=== PATIENT | male | born 1960 | race Caucasian/White ===

== ENCOUNTER 2019-12-16 22:20 | Emergency (ER) | payer OTHER ==
[2019-12-16 22:35] VITALS: BP 144/93; PULSE 116
--- NOTE | 2019-12-16 22:41 | EDM.PDOC ---
ED HPI GENERAL MEDICAL PROBLEM - General Chief Complaint: Laceration Stated Complaint: LACERATION RIGHT PINKY FINGER Time Seen by Provider: 12/16/19 22:33 Source of Information: Reports: Patient History Limitations: Reports: No Limitations - History of Present Illness INITIAL COMMENTS - FREE TEXT/NARRATIVE: This patient is a 59 year old male that presents to the ER. Patient reports that he was at work when a machine smashed his right 5th finger causing a laceration. Patient denies any other injury. Onset: Today Onset Date: 12/16/19 Duration: Hour(s): (1) Location: Reports: Upper Extremity, Right Front/Back Body Image: 1 - laceration Severity: Mild Improves with: Reports: None Worsens with: Reports: None Associated Symptoms: Reports: No Other Symptoms Right pinky finger Pain Score (Numeric/FACES): 4 - Related Data Allergies Allergy/AdvReac Type Severity Reaction Status Date / Time No Known Allergies Allergy Verified 12/16/19 22:21 Home Meds: Home Meds cephALEXin [Keflex] 500 mg PO QID 5 Days #20 capsule 12/17/19 [Rx] Past Medical History - Past Surgical History HEENT Surgical History: Reports: Tonsillectomy Musculoskeletal Surgical History: Reports: Arthroscopic Knee, Ganglion Cyst, Other (See Below) Social & Family History - Tobacco Use Smoking Status *Q: Unknown Ever Smoked ED ROS GENERAL - Review of Systems Review Of Systems: See Below Constitutional: Reports: No Symptoms Respiratory: Reports: No Symptoms Cardiovascular: Reports: No Symptoms Musculoskeletal: Reports: No Symptoms Skin: Reports: Wound (laceraton right 5th finger) Neurological: Reports: No Symptoms Psychiatric: Reports: No Symptoms Hematologic/Lymphatic: Reports: No Symptoms Immunologic: Reports: No Symptoms ED EXAM, SKIN/RASH Exam: See Below Exam Limited By: No Limitations General Appearance: Alert, WD/WN, No Apparent Distress Head: Atraumatic Cardiovascular: Normal Peripheral Pulses, Regular Rate, Rhythm Peripheral Pulses: 2+: Radial (L), Radial (R) Extremities: Normal Range of Motion, Normal Capillary Refill, Other (Full ROM. No tendon injury seen. Sensory/motor function intact. Neurovascular intact. pulses +2, cap refill < 2 sec. ) Neurological: Alert, Oriented Psychiatric: Normal Affect, Normal Mood Skin: Warm, Dry, Normal Color, No Rash, Wound/Incision Location, Skin: Upper Extremity, Right (Right 5th digit tip, involving nail and nailbed. ) ED SKIN PROCEDURES - Laceration/Wound Repair Right Distal Digit - 5th (Baby) Appearance: Subcutaneous Anesthetic Type: Digital Local Anesthesia - Bupivicaine (Marcaine): 0.5% Plain Local Anesthetic Volume: 2cc (each webspace) Skin Prep: Chlorhexidine (Hibiciens) Saline Irrigation (cc's): 60 Exploration/Debridement/Repair: Wound Explored, In a Bloodless Field, Explored to Base, Multiple Flaps Aligned Closed with: Sutures Lac/Wound length In cm: 3 Suture Size: 6-0 # of Sutures: 6 Suture Type: Nylon, Interrupted Tetanus Status Addressed: Yes Complications: Yes Complication Description: Patient during procedure accidently talked with hand, pulled away, and ripped suture out during procedure. This suture was removed completely, then continued laceration repair. The nail bed was also delicate and kept tearing, this area was not sutureable. - Splinting Right 5th Digit Splint Site: Right 5th finger Pre-Procedure NV Status: Normal Post-Procedure NV Status: Normal Splint Material: Other (plastic finger splint) Splint Design: Other Applied & Form Fitted By: Nurse Provider Post-Splint Application NV Check: NV Status Normal, Good Position Complications: No Course - Vital Signs Last Recorded V/S: Last Vital Signs Temp 98.4 F 12/16/19 22:31 Pulse 116 H 12/16/19 22:31 Resp 20 12/16/19 22:31 BP 144/93 H 12/16/19 22:31 Pulse Ox 94 L 12/16/19 22:31 - Orders/Labs/Meds Orders: Active Orders 24 hr Category Date Time Status Vaccines to be Administered [RC] PER UNIT ROUTINE Care 12/16/19 22:37 Active Fingers Fifth Digit Rt F9 [CR] Stat Exams 12/16/19 22:37 Taken Meds: Medications Discontinued Medications Generic Name Dose Route Start Last Admin Trade Name Freq PRN Reason Stop Dose Admin Bacitracin 1 gm 12/17/19 00:14 12/17/19 00:16 Bacitracin Oint TOP 05/26/20 00:15 Not Given NOW STA Bupivacaine HCl 10 ml 12/16/19 22:37 12/16/19 22:43 Sensorcaine-Mpf 0.5% INJECT 12/16/19 22:38 10 ml ONETIME ONE Administration Cefazolin Sodium 1 gm 12/16/19 23:18 12/16/19 23:23 Ancef IM 12/16/19 23:19 1 gm ONETIME ONE Administration Diphtheria/Tetanus/Acell Pertussis 0.5 ml 12/16/19 22:37 12/16/19 22:43 Adacel IM 12/16/19 22:38 0.5 ml .ONCE ONE Administration Neomycin/Polymyxin/Bacitracin 1 each 12/17/19 00:14 12/17/19 00:18 Triple Antibiotic Oint TOP 12/17/19 00:15 1 each ONETIME ONE Administration - Radiology Interpretation Free Text/Narrative:: Right 5th digit finger: Laceration soft tissue injury. Distal phalanx fracture Departure - Departure Time of Disposition: 00:15 Disposition: Home, Self-Care 01 Condition: Fair Clinical Impression: Laceration of finger Qualifiers: Encounter type: initial encounter Finger: little finger Damage to nail status: with damage Foreign body presence: without foreign body Laterality: right Qualified Code(s): S61.316A - Laceration without foreign body of right little finger with damage to nail, initial encounter Laceration of finger nail bed Qualifiers: Encounter type: initial encounter Qualified Code(s): S61.319A - Laceration without foreign body of unspecified finger with damage to nail, initial encounter Finger fracture, right Qualifiers: Encounter type: initial encounter Finger: little finger Fracture type: open Phalanx: distal Fracture alignment: nondisplaced Qualified Code(s): S62.666B - Nondisplaced fracture of distal phalanx of right little finger, initial encounter for open fracture - Discharge Information *PRESCRIPTION DRUG MONITORING PROGRAM REVIEWED*: Not Applicable *COPY OF PRESCRIPTION DRUG MONITORING REPORT IN PATIENT SOLITARIO: Not Applicable Prescriptions: cephALEXin [Keflex] 500 mg PO QID 5 Days #20 capsule Instructions: Finger Fracture, Adult, [id number], Laceration Care, Adult, [id number], Nail Bed Laceration, Sutured Wound Care, [id number] Referrals: PCP,None [Primary Care Provider] - Forms: ED Department Discharge Additional Instructions: Followup with primary care provider in 7 days for suture removal Return to the ER for worsening of condition or any emergent concerns Wash the wound gently with soap and water twice a day, rinse, gently pat dry. Keep clean and covered No using this finger until sutures are removed Finger splint to help keep covered and unused Watch for signs of infection such as redness, drainage, heat, fever: If so, see provider in ER or Clinic. Keflex 500mg 1 pill four times a day for 5 days #20 no refill: Sent to [facility] You received a Tetanus Shot (TDAP) in the ER today Sepsis Event Note - Evaluation Sepsis Screening Result: No Definite Risk - Focused Exam Vital Signs: Vital Signs Temp Pulse Resp BP Pulse Ox 12/16/19 22:31 98.4 F 116 H 20 144/93 H 94 L Date Exam was Performed: 12/17/19 Time Exam was Performed: 00:21 - My Orders Last 24 Hours: My Active Orders 12/16/19 22:37 Vaccines to be Administered [RC] PER UNIT ROUTINE Fingers Fifth Digit Rt F9 [CR] Stat - Assessment/Plan Last 24 Hours: My Active Orders 12/16/19 22:37 Vaccines to be Administered [RC] PER UNIT ROUTINE Fingers Fifth Digit Rt F9 [CR] Stat Plan: PLEASE SEE RN NOTE FOR PFSH
[2019-12-16] MEDS: Diphtheria,Pertussis(Acell),Tetanus Vaccine 0.5 ML Syringe IM ONE (22:43)
[2019-12-16] MEDS: Bupivacaine 0.5% 10 ML SDV INJECT ONE (22:43)
[2019-12-16] MEDS: ceFAZolin 1 GM Vial IM ONE (23:23)
[2019-12-17] MEDS: Bacitracin Oint 28.35 GM Tube TOP STA (00:16)
[2019-12-17] MEDS: Bacitracin/Neomycin/Polymyxin B Oint 0.9 GM U/D Packet TOP ONE (00:18)
== END 2019-12-17 00:30 | disposition home or self-care (01) ==
LOC: MERGE 22:20 → CC.ED 22:20
DX: S62.666B Nondisplaced fracture of distal phalanx of right little finger, initial encounter for open fracture (principal); Z23 Encounter for immunization; W31.9XXA Contact with unspecified machinery, initial encounter; Y99.0 Civilian activity done for income or pay
CPT/HCPCS: 12002; 12032; 73140-F9; 90471; 90715; 96372; 99283-25; A9270-GY; J0690; J3490

== ENCOUNTER 2021-06-29 21:41 | Emergency (ER) | payer BC, OTHER ==
[2021-06-29] MEDS ORDERED: Iopamidol 755 Mg/ML 100 ML Bottle ONE (22:00)
--- NOTE | 2021-06-29 22:11 | EDM.PDOC ---
ED HPI GENERAL MEDICAL PROBLEM - General Chief Complaint: General Stated Complaint: SOB Time Seen by Provider: 06/29/21 21:55 Source of Information: Reports: Patient History Limitations: Reports: No Limitations - History of Present Illness INITIAL COMMENTS - FREE TEXT/NARRATIVE: 60-year-old male patient presents to the emergency department following a 10-day 10-day quarantine for COVID. Patient had returned to work today and had increasing fatigue and some exertional dyspnea. Patient denies any palpitations in his chest or chest pain or significant shortness of breath. States that his breathing becomes more difficult when exerting himself. He was placed on a steroid medication for his cold bed. He did not receive any other outpatient treatments and did not require hospitalization. He states that his heart rate typically runs a little high typically in the 80s to 90s and even to the low 100s at times. He denies diaphoresis, nausea, vomiting, or diarrhea at the present time. Patient reports he just does not feel himself he does state he felt pretty good yesterday with no signs of the fatigue or exertional dyspnea. Onset: Today Duration: Getting Worse - Related Data Allergies Allergy/AdvReac Type Severity Reaction Status Date / Time No Known Allergies Allergy Verified 06/29/21 21:53 Home Meds: Home Meds . [No Known Home Meds] 06/29/21 [History] Past Medical History - Past Surgical History HEENT Surgical History: Reports: Tonsillectomy Musculoskeletal Surgical History: Reports: Arthroscopic Knee, Ganglion Cyst, Other (See Below) Social & Family History - Family History Family Medical History: No Pertinent Family History - Tobacco Use Tobacco Use Status *Q: Never Tobacco User - Caffeine Use Caffeine Use: Reports: None - Recreational Drug Use Recreational Drug Use: No ED ROS GENERAL - Review of Systems Review Of Systems: See Below Constitutional: Reports: Fatigue. Denies: Fever, Chills HEENT: Reports: Other (loss of taste) Respiratory: Reports: Shortness of Breath (on exertion), Cough (occasional). Denies: Wheezing, Pleuritic Chest Pain, Hemoptysis Cardiovascular: Reports: Dyspnea on Exertion. Denies: Chest Pain, Edema, Syncope Endocrine: Reports: Fatigue GI/Abdominal: Denies: Abdominal Pain, Constipation, Diarrhea, Nausea, Vomiting : Reports: No Symptoms. Denies: Dysuria, Flank Pain Musculoskeletal: Reports: No Symptoms Skin: Reports: No Symptoms Neurological: Reports: Other (states dizziness several days ago ). Denies: Confusion, Dizziness, Headache Psychiatric: Reports: No Symptoms. Denies: Agitation, Anxiety, Confusion Hematologic/Lymphatic: Reports: No Symptoms Immunologic: Reports: No Symptoms ED EXAM, GENERAL - Physical Exam Exam: See Below Exam Limited By: No Limitations General Appearance: Alert, WD/WN, No Apparent Distress, Mild Distress Nose: Normal Inspection Throat/Mouth: Normal Inspection, Normal Lips, Normal Voice Head: Atraumatic, Normocephalic Neck: Normal Inspection Respiratory/Chest: Lungs Clear, Normal Breath Sounds Cardiovascular: No Edema, No Gallop, No Murmur, No Rub, Tachycardia GI/Abdominal: Normal Bowel Sounds, Soft, Non-Tender, No Organomegaly, No Distention, No Mass (Male) Exam: Deferred Rectal (Males) Exam: Deferred Back Exam: Normal Inspection, Full Range of Motion. No: CVA Tenderness (L), CVA Tenderness (R) Extremities: Normal Inspection, Normal Range of Motion, Non-Tender, No Pedal Edema, Normal Capillary Refill Neurological: Alert, Oriented, CN II-XII Intact, Normal Cognition Psychiatric: Normal Affect, Normal Mood Skin Exam: Warm, Dry, Intact, Normal Color, No Rash Lymphatic: No Adenopathy #1 Interpretation EKG Date: 06/29/21 Time: 22:10 Rhythm: Other (Sinus Tachycardia with rate of 124, no evidence of ST elevation or depression) [place]: Normal P-Wave: Present QRS: Normal ST-T: Normal QT: Normal Comparison: NA - No Prior EKG Course - Vital Signs Last Recorded V/S: Last Vital Signs Temp 98.2 F 06/29/21 21:51 Pulse 110 H 06/29/21 23:29 Resp 20 06/29/21 23:29 BP 129/76 06/29/21 23:29 Pulse Ox 95 06/29/21 23:29 - Orders/Labs/Meds Orders: Active Orders 24 hr Category Date Time Status Chest PE [Ang Chest] [CT] Stat Exams 06/29/21 21:53 Taken EKG 12 Lead [EK] Stat Ther 06/29/21 21:53 Ordered Labs: Laboratory Tests 06/29/21 06/29/21 Range/Units 22:00 22:00 WBC 12.8 H (4.0-11.0) 10^3/uL RBC 4.86 (4.50-6.00) x10^6/uL Hgb 15.1 (14.0-18.0) g/dL Hct 43.1 (42.0-52.0) % MCV 88.7 (83.0-97.0) fL MCH 31.1 (27.0-32.0) pg MCHC 35.0 (32.0-36.0) g/dL RDW Coeff of Dinora 12.6 (11.0-15.0) % Plt Count 483 H (150-400) 10^3/uL Immature Gran % (Auto) 2.6 (0.0-4.9) % Neut % (Auto) 72.5 H (41-71) % Lymph % (Auto) 14.8 L (24-44) % [place] % (Auto) 9.6 (0-10) % Eos % (Auto) 0.3 (0-6) % Baso % (Auto) 0.2 (0-1) % Neut # (Auto) 9.28 H (1.80-8.00) x10^3/uL Lymph # (Auto) 1.89 (0.60-5.00) 10^3/uL [place] # (Auto) 1.23 (0.00-1.50) 10^3/uL Eos # (Auto) 0.04 (0.00-1.50) 10^3/uL Baso # (Auto) 0.03 (0.00-0.50) 10^3/uL Immature Gran # (Auto) 0.33 (0.00-0.49) 10^3/uL Sodium 141 (136-145) mEq/L Potassium 4.1 (3.5-5.0) mEq/L Chloride 102 (98-106) mEq/L Carbon Dioxide 23 (21-32) mmol/L BUN 19 H (7-18) mg/dL Creatinine 1.3 (0.7-1.3) mg/dL Est Cr Clr Drug Dosing 61.61 mL/min Estimated GFR (MDRD) 56 L (>=60) mL/min Glucose 110 H (75-99) mg/dL Calcium 9.3 (8.4-10.1) mg/dL Magnesium 2.1 (1.8-2.4) mg/dL Total Bilirubin 1.1 H (0.0-1.0) mg/dL AST 39 H (15-37) U/L ALT 61 (12-78) U/L Alkaline Phosphatase 74 (46-116) U/L Troponin I High Sens 10.7 (<=76) pg/mL C-Reactive Protein 2.7 H (0.2-0.8) mg/dL Total Protein 7.6 (6.4-8.2) g/dL Albumin 3.4 (3.4-5.0) g/dL Meds: Medications Discontinued Medications Generic Name Dose Route Start Last Admin Trade Name Tarasq PRN Reason Stop Dose Admin Sodium Chloride 1,000 mls @ 999 mls/hr 06/29/21 22:03 06/29/21 22:13 Normal Saline IV 06/29/21 23:03 999 mls/hr .BOLUS ONE Administration Iopamidol 100 ml 06/29/21 22:22 Iopamidol 755 Mg/Ml 100 Ml Bottle IVPUSH 06/29/21 22:23 ONETIME ONE - Re-Assessments/Exams Free Text/Narrative Re-Assessment/Exam: This is a 60 year old that presents to the ED with complaints of exertional dyspnea and fatigue. Recent COVID-19 and had returned to work today following a quarantine period. Labs obtained to include a CBC, CMP, CRP, and Troponin. WBC count slightly elevated at 12.7. Troponin 10.7. An EKG obtained showing sinus tachycardia with no acute ST changes. A CTA of chest was completed. I personally reviewed the CT and saw no evidence of pulmonary embolism with some evidence of ground glass opacities. These finding were confirmed after speaking with r adiologist. Patient received 1 liter of normal saline bolus and heart rate improved from 100-110. Discussed findings with the patient and should remain home from work until his scheduled shifts this weekend. Encouraged to remain hydrated. May use Tylenol or ibuprofen for fever or discomfort. A work note was provided. Activity as tolerated. Follow-up with PCP if symptoms not improving. Call or return if questions, concerns, or condition worsens. Education provided for COVID-19 and SOB. Departure - Departure Time of Disposition: 23:52 Disposition: Home, Self-Care 01 Condition: Good Clinical Impression: COVID-19, Exertional dyspnea Fatigue Qualifiers: Fatigue type: unspecified Qualified Code(s): R53.83 - Other fatigue - Discharge Information *PRESCRIPTION DRUG MONITORING PROGRAM REVIEWED*: Not Applicable *COPY OF PRESCRIPTION DRUG MONITORING REPORT IN PATIENT SOLITARIO: Not Applicable Instructions: Symptoms of COVID-19 - CDC (09/14/2020), Fatigue, Shortness of Breath, Adult Forms: ED Department Discharge Additional Instructions: 1. Stay home from work until scheduled this weekend. 2. Push oral fluid intake, rest as needed, activity as tolerated. 3. May take Tylenol or ibuprofen for fever or pain. 4. Follow-up with primary care provider if symptoms are not improving. 5. Call or return to ED if questions, concerns, or condition worsens. Sepsis Event Note (ED) - Evaluation Sepsis Screening Result: No Definite Risk - Focused Exam Vital Signs: Vital Signs Temp Pulse Resp BP Pulse Ox 06/29/21 23:29 110 H 20 129/76 95 06/29/21 21:51 98.2 F 133 H 22 H 138/91 H 92 L
[2021-06-29] MEDS: Sodium Chloride 0.9% 1,000 ML IV ONE (22:13)
[2021-06-29] MEDS ORDERED: Iopamidol 755 Mg/ML 100 ML Bottle IVPUSH ONE (22:22)
[2021-06-29 23:30] VITALS: BP 129/76; PULSE 110
== END 2021-06-30 00:11 | disposition home or self-care (01) ==
LOC: CC.ED 21:41
DX: U07.1 COVID-19 (principal); R53.83 Other fatigue
CPT/HCPCS: 36415; 71275; 80053; 83735; 84484; 85025; 86140; 99285-25; J7030; Q9967